=== PATIENT | male | born 2005 | race Caucasian/White ===

== ENCOUNTER 2024-03-04 20:45 | Emergency (ER) | payer SELFPAY ==
[2024-03-04 20:46] VITALS: BP 129/80; PULSE 84; RESP 16; TEMP 36.6; O2SAT 100; BMI 18.6
--- NOTE | 2024-03-04 21:01 | XR_ITS ---
PROCEDURE INFORMATION: Exam: XR Right Forearm Exam date and time: 03/04/2024 9:03 PM Age: 18 years old Clinical indication: Pain; Lower or forearm; Right; Additional info: Dog bite, pain TECHNIQUE: Imaging protocol: Radiologic exam of the right forearm. Views: 2 views. COMPARISON: CR XR HAND RT 2V 09/05/2019 7:08 PM FINDINGS: Bones/joints: Normal. No acute bony abnormality. Soft tissues: Tiny foci of soft tissue gas in the mid forearm. No radiopaque foreign body. IMPRESSION: Tiny foci of soft tissue gas in the mid forearm. No radiopaque foreign body
--- NOTE | 2024-03-04 21:01 | XR_ITS ---
PROCEDURE INFORMATION: Exam: XR Right Elbow Exam date and time: 03/04/2024 9:03 PM Age: 18 years old Clinical indication: Pain; Elbow; Right; Additional info: Dog bite, pain TECHNIQUE: Imaging protocol: Radiologic exam of the right elbow. Views: 3 or more views. COMPARISON: CR XR FOREARM RT 2V 03/04/2024 9:03 PM FINDINGS: Bones/joints: Normal. No acute bony abnormality. Soft tissues: Tiny foci of soft tissue gas in the mid forearm. No radiopaque foreign body. IMPRESSION: Tiny foci of soft tissue gas in the mid forearm. No radiopaque foreign body.
[2024-03-04] MEDS: ONDANSETRON 4MG ODT 4 MG SL (21:46)
[2024-03-04] MEDS: IBUPROFEN 400 MG TABLET 800 MG PO (21:47)
[2024-03-04] MEDS: BACITRACIN ZINC OINT 30GM TUBE TP (21:48)
[2024-03-04] MEDS: HYDROCODONE/APAP 5/325 MG TABLET 1 TAB PO (21:59)
[2024-03-04] MEDS: AMOXICILLIN/CLAVULANATE POTASSIUM 875/125MG TABLET 1 EACH PO (21:59)
[2024-03-04 22:49] VITALS: BP 126/70; PULSE 78; RESP 20; TEMP 36.9; O2SAT 98
--- NOTE | 2024-03-04 23:01 | HMH.EDGENADL ---
Discharge Plan Disposition Patient Disposition: Home, Self-Care Condition: Good Prescriptions Prescriptions: New amoxicillin-pot clavulanate 875-125 mg tablet 1 tab PO BID Qty: 20 0RF No Action azithromycin 250 MG tablet 250 mg PO DIRECTED Qty: 4 0RF Rx Instructions: one (1) tablet day #2 thru #5 pt wt 120lb first dose in [facility] Referrals Follow up/Referrals: Provider,Referral, MD [Primary Care Provider] - See instructions Activity Restrictions/Add. Instructions Additional Instructions/Restrictions: You were evaluated in the emergency department today. 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 Take Tylenol and ibuprofen at home as needed for pain. Keep your wounds clean and dry. Do not submerge under any water. Return to the emergency department for new or worsening symptoms. Clinical Impressions Clinical Impression: Dog bite of right forearm Instructions Patient Instructions: Animal Bites, DI for Dog Bite Discharge ED Provider: Keisha Najera General Adult HPI General Chief complaint: Animal Bite Stated complaint: AO 03/04 dog bite, right arm lac Time Seen by Provider: 03/04/24 20:58 Mode of Arrival: Ambulatory Source of Information: Patient Limitations: No Limitations Description of Symptoms (Recalled from ER Triage Doc. by RN): Pt presents to ED for a dog bite. Pt states he went to his friends house nad was trying to push the dogs back and one dog bit him on the R forearm. Pt has a few puncture wounds that are visible. However, he is not actively bleeding. Pt is A&O*4 and mother is bedside. History of Present Illness HPI narrative: This patient is a 18-year-old male who denies significant past medical history presenting to the emergency department for evaluation with concern for a dog bite to the right forearm. He notes that the dog is his friend's pitbull. The dog is up-to-date on vaccinations. Patient is up-to-date on tetanus with last tetanus shot over the last 5 years. This happened just prior to arrival. No other concerns or complaints. No new numbness or tingling. Related Data Previous Rx's Medication Instructions Recorded azithromycin 250 mg tablet 250 mg PO DIRECTED #4 tabs 06/08/19 amoxicillin 875 mg-potassium 1 tab PO BID #20 tabs 03/04/24 clavulanate 125 mg tablet Allergies Allergy/AdvReac Type Severity Reaction Status Date / Time No Known Allergies Allergy Verified 06/08/19 20:51 [facility] Disclaimer: The information contained in this section may have been updated after the patient was seen, as this information can be updated by other users. Social History Smoking Status: Current every day smoker alcohol intake: never current occupational status: employed Travel in the last 8 weeks: None ROS Obtained: Yes All systems reviewed & no additional complaints except as documented Physical Exam General General appearance: alert and in no apparent distress Head Head exam: atraumatic and normocephalic Eye Eye exam: Present normal appearance, PERRL and EOMI ENT ENT exam: Present normal exam, normal oropharynx, mucous membranes moist and normal external ear exam Neck Neck exam: Present normal inspection, full ROM and trachea midline; Absent tenderness Chest Chest inspection: Present normal inspection and symmetric chest wall rise; Absent tenderness Respiratory Respiratory exam: Present normal lung sounds bilaterally; Absent respiratory distress, wheezes, stridor or accessory muscle use Cardiovascular Cardiovascular exam: Present regular rate and normal rhythm Abdominal Exam Abdominal exam: Present soft; Absent distention, tenderness or guarding Extremities Exam Extremities exam: Present full ROM, tenderness, normal capillary refill and edema Expanded Upper Extremity Exam Right: Forearm/Wrist exam: Present other (Multiple puncture wounds scattered across the right forearm with soft tissue swelling. Neurovascularly intact distally. No large open lacerations requiring repair.) Back Exam Back exam: Present normal inspection and full ROM; Absent tenderness Neurological Exam Neurological exam: Present alert, oriented X3, CN II-XII intact and normal gait; Absent motor sensory deficit Psychiatric Psychiatric exam: Present normal affect and normal mood Skin Skin exam: Present warm and dry Medical Decision Making Medical Records Medical records reviewed: Yes I reviewed the patient's medical records. [place] Inquiry Pt receiving controlled substance: No Vital Signs: 03/04/24 20:46 03/04/24 22:49 Temperature 97.9 F 98.5 F Temperature Source Oral Pulse Rate 78 Pulse Rate [Left] 84 Respiratory Rate 16 20 Blood Pressure 126/70 Blood Pressure [Right Arm] 129/80 Blood Pressure Mean [Right Arm] 96 02 Sat by Pulse Oximetry 100 Oxygen Delivery Method Room Air Room Air Lab Data Lab results reviewed: Yes I reviewed the patient's lab results. Orders (Tests/Meds): ED MEDICATIONS Discontinued Medications Generic Name Dose Route Start Last Admin Trade Name Michelle PRN Reason Stop Dose Admin Hydrocodone Bitart/Acetaminophen 1 tab 03/04/24 21:01 03/04/24 21:59 Hydrocodone/Apap 5/325 Mg Tablet PO 03/04/24 21:02 1 tab ONCE ONE Administration Amoxicillin/Clavulanate Potassium 1 each 03/04/24 21:01 03/04/24 21:59 Amoxicillin/Clavulanate Potassium 875/125mg Tablet PO 03/04/24 21:02 1 each ONCE ONE Administration Bacitracin 1 gm 03/04/24 21:02 03/04/24 21:48 Bacitracin Zinc Oint 30gm Tube TP 03/04/24 21:03 1 gm ONCE ONE Administration Ibuprofen 800 mg 03/04/24 21:01 03/04/24 21:47 Ibuprofen 400 Mg Tablet PO 03/04/24 21:02 800 mg ONCE ONE Administration Ondansetron HCl 4 mg 03/04/24 21:02 03/04/24 21:46 Ondansetron 4mg Odt SL 03/04/24 21:03 4 mg ONCE ONE Administration ORDERS Category Date Time Status XR elbow RT min 3V Stat Exams 03/04/24 21:01 Completed XR forearm RT 2V Stat Exams 03/04/24 21:01 Completed Medical Decision Narrative: In summary, this patient is a 18-year-old male presenting to the Emergency Department for evaluation of dog bite to the right forearm. Differential diagnoses considered include but are not limited to dog bite, retained foreign body, fracture, laceration, abrasion. Ruling out the most morbid conditions drove assessment. On exam, the patient is well-appearing and is neurovascularly intact. He does have soft tissue swelling of the right arm with small puncture wounds but no large wounds that require repair. Workup included to the right elbow and forearm. I independently interpreted x-ray prior to the radiologist read and noted tissue gas with no retained foreign body and no fractures. Please see their read for final interpretation. Patient is already up-to-date on tetanus and the dog is vaccinated. Patient's wounds were copiously irrigated with Betadine and saline. His wounds were then covered with bacitracin and sterile dressing. He was given oral Augmentin. He was given oral [place] and ibuprofen while here in the emergency department. At this time, I feel the patient is appropriate for discharge home with prescription for Augmentin and instructions for supportive management. Strict return precautions were given. Critical Care Critical Care Time Critical Care Time: No
== END 2024-03-04 22:49 | disposition home or self-care (01) ==
PROVIDERS: Emergency Provider Emergency Medicine
DX: S51.851A Open bite of right forearm, initial encounter (principal); W54.0XXA Bitten by dog, initial encounter; F17.210 Nicotine dependence, cigarettes, uncomplicated
CPT/HCPCS: 73080; 73090; 99283